=== PATIENT | female | born 1975 | race Two or more races ===

== ENCOUNTER 2017-06-02 11:53 | Day surgery (SDC) | payer BC ==
[~2017-06-02] VITALS: Ht 170.2 cm; Wt 66.6 kg
[2017-06-02 13:22] VITALS: Ht 170.2 cm; Wt 66.6 kg
[2017-06-02] MEDS ORDERED: NO MEDS (13:25)
[2017-06-02 13:49] VITALS: BP 116/77; PULSE 73; RESP 18
[2017-06-02] MEDS ORDERED: PROPOFOL 60 ML ONE (14:24)
[2017-06-02] MEDS ORDERED: LIDOCAINE 100 MG SYRINGE ONE (14:24)
--- NOTE | 2017-06-02 14:25 | OPPN ---
Date/Time of Note Date/Time of Note DATE: 06/02/17 TIME: 14:22 Proc Note GI Procedure Date 06/02/17 Indication: other (Dyspepsia) Pre-procedure Diagnosis Dyspepsia Post-procedure Diagnosis Impression: Mild distal esophagitis. Moderate gastritis. Otherwise normal EGD. Plan: PPI therapy Review pathology Follow-up as previously scheduled. . Procedure Performed: Endoscopy (With biopsies) Surgeon EDDY EDWARDS MD See signature line Braddisher none Anesthesia Type: MAC Anesthesiologist: AMY PRATT Tourniquet Time none EBL none Transfusion required none Biopsy 1: Gastric body and antrum Grafts/Implants none Tubes/Drains none Complication(s) none Disposition: home Procedure Description After informed consent, with the patient/relatives understanding the procedure, its indications, potential risks and complications, including but not limited to : allergic reaction, bleeding, perforation or infection, and after all pertinent questions were answered to the patients satisfaction, the patient/ relatives signed witnessed informed consent. Following this, premedication was administered slowly IV push under careful cardiovascular and respiratory monitoring with pulse oximetry, automatic blood pressure, and shelter monitor. Once the sedative effect was achieved the patient was place in the left lateral decubitus, the panendoscope was introduced and advanced under visual control. Careful examination of the upper gastrointestinal tract, both on insertion as well as withdrawal of the instrument disclosing the following findings: ESOPHAGUS: the mucosa of the entire esophagus was carefully examined and showed the following findings: There is mild erythema of the mucosa at the esophagogastric junction. Otherwise the mucosa appears within normal limits. There is no evidence of varices, neoplasm, or stricture. No Hiatal Hernia identified. STOMACH: Upon entrance to the stomach air was insufflated, the gastric braun distended normally. The mucosa of the fundus, body and antrum of the stomach was carefully examined both head-on and on retroflexion, and showed the following findings: There is moderate erythema and edema of the mucosa of the body and antrum of the stomach. Biopsies were obtained to rule out H. pylori infection. Otherwise the mucosa appears within normal limits with no abnormalities. There is no evidence of ulcers or neoplasm. PYLORUS: The pylorus was carefully examined and showed the following findings: the pylorus appears patent and within normal limits, with no evidence of gastric outlet obstruction. DUODENUM: The duodenal mucosa was carefully examined in the duodenal bulb as well as the second portion of the duodenum and showed the following findings: the mucosa appears unremarkable with no evidence of duodenitis, ulcer or neoplasm. Copies To: CC: EDDY EDWARDS MD, MORDO MD Jun 02, 2017 14:25
--- NOTE | 2017-06-02 14:28 | OPPN ---
Date/Time of Note Date/Time of Note DATE: 06/02/17 TIME: 14:25 Proc Note GI Procedure Date 06/02/17 Indication: other (Diarrhea) Pre-procedure Diagnosis Diarrhea Post-procedure Diagnosis Impression: Tortuous, redundant colon. Normal colonic mucosa. Random biopsies obtained to rule out microscopic, lymphocytic or collagenous colitis. Moderate-sized internal hemorrhoids. Plan: Review pathology. High-fiber diet. Follow-up as previously scheduled. . Procedure Performed: Colonoscopy (With biopsies) Surgeon see signature line Fire Crew Specialist none Anesthesia Type: MAC Anesthesiologist: AMY PRATT Tourniquet Time none EBL none Transfusion required none Biopsy 1: Right side of the colon Biopsy 2: Left side of the colon Grafts/Implants none Tubes/Drains none Complication(s) none Disposition: home Procedure Description After informed consent, with the patient/relatives understanding the procedure, its indications and potential risks and complications, including but not limited to: Allergic reaction, bleeding, perforation, infection, and after all pertinent questions were answered to the patient's satisfaction, the patient/ relatives signed the witnessed informed consent. Following this, premedication was administered slowly IV push under careful cardiovascular and respiratory monitoring with pulse OXIMETRY, automatic blood pressure, and group director experience. Once the sedative effect was achieved, the patient was placed in the left lateral decubitus position, digital rectal examination was performed. The colonoscope was then introduced and advanced under visual control throughout all segments of the colon including: the rectum, sigmoid, descending colon, splenic flexure, transverse colon, hepatic flexure, ascending colon and finally reaching the cecum which was clearly identified by transillumination, finger indentation and the ileocecal valve. Careful examination of the mucosa of the lower gastrointestinal tract both on insertion as well as withdrawal of the instrument disclosed the following findings: PREPARATION QUALITY: [Adequate], RECTAL EXAM: The anorectal area was visualized examined and digital rectal examination performed with the following findings: No evidence of perirectal disease, no masses. COLONIC MUCOSA: The mucosa of all segments of the colon was carefully examined and showed the following findings: The colon is tortuous and redundant. Random biopsies were obtained to the right and left side of the colon. Moderate-sized internal hemorrhoids present. Otherwise the examined mucosa appears within normal limits. There is no evidence of inflammatory changes, diverticular formation, polyps or neoplasms, vascular malformation, or any other abnormality. The instrument was then withdrawn, the patient tolerated the procedure well and was transferred out of the Endoscopy Suite awake and in good condition to continue recovery under observation. Copies To: CC: EDDY EDWARDS MD, MORDO MD Jun 02, 2017 14:27
[2017-06-02] MEDS ORDERED: ALBUTEROL 0.083% (NEB) 2.5 MG/3 ML AMP HHN STA (14:58)
[2017-06-02 15:20] VITALS: BP 112/63; PULSE 70; RESP 16
== END 2017-06-02 18:14 | disposition home or self-care (01) ==
LOC: GIL 11:53
PROVIDERS: ATTEND Internal Medicine Gastroenterology
DX: K64.8 Other hemorrhoids (principal); Q43.8 Other specified congenital malformations of intestine; K20.9 Esophagitis, unspecified; K29.70 Gastritis, unspecified, without bleeding
CPT/HCPCS: 43239; 45378; 84703; 88305; 88312; 94664; J2001; Z7610